=== PATIENT | male | born 1980 | race Two or more races ===

== ENCOUNTER 2021-05-19 17:58 | Emergency (ER) | payer MEDICAID, OTHER ==
[~2021-05-19] VITALS: Ht 167.6 cm; Wt 77.1 kg
[2021-05-19 18:00] VITALS: BP 118/78
--- NOTE | 2021-05-19 18:09 | NUR ---
BIBA ALS TO [facility]
[2021-05-19] MEDS ORDERED: NACL 0.9% 2,000 ML IV ONE (18:20)
[2021-05-19 18:38] LABS: BASOPHILS % (AUTO) 0.5 % (0.0-2.0); EOSINOPHILS # (AUTO) 0.4 K/uL (0-0.4); EOSINOPHILS % (AUTO) 4.6 % (0.0-4.0); HEMATOCRIT 40.1 % (36-52); HEMOGLOBIN 13.5 g/dL (12.0-18.0); LYMPHOCYTES % (AUTO) 23.9 % (20.5-51.1); MEAN CORPUSCULAR HEMOGLOBIN 30 pg (27-31); MEAN CORPUSCULAR HGB CONC 34 g/dL (33-37); MEAN CORPUSCULAR VOLUME 87.8 fL (80-94); MONOCYTES # (AUTO) 0.6 K/uL (0.8-1.0); MONOCYTES % (AUTO) 7.7 % (1.7-9.3); NEUTROPHILS # (AUTO) 5.3 K/uL (1.8-7.7); NEUTROPHILS % (AUTO) 63.3 % (42.2-75.2); PLATELET COUNT (AUTO) 338 K/uL (140-450); RED BLOOD CELL COUNT(AUTO) 4.57 MIL/uL (4.20-6.10); RED CELL DISTRIBUTION WIDTH 13.7 % (11.6-13.7); WHITE BLOOD COUNT (AUTO) 8.4 K/uL (4.8-10.8)
[2021-05-19 18:51] LABS: ACETONE, SERUM NEGATIVE (NEGATIVE)
[2021-05-19 19:05] LABS: ALBUMIN 3.1 g/dL (3.4-5.0); ANION GAP 12.4 (8-16); ASPARTATE AMINOTRANSFERASE 18 U/L (15-37); CARBON DIOXIDE 25.8 mmol/L (21-32); CHLORIDE 96 mmol/L (98-107); CREATININE 0.8 mg/dL (0.6-1.3); GFR ARICAN-AMERICAN 136 mL/min (>90); GLUCOSE 379 mg/dL (74-106); LIPASE 62 U/L (73-393); POTASSIUM 4.2 mmol/L (3.5-5.1); SODIUM SERUM 130 mmol/L (136-145); TOTAL BILIRUBIN 0.7 mg/dL (0.0-1.0); UREA NITROGEN, BLOOD 14 mg/dL (7-18)
--- NOTE | 2021-05-19 19:08 | NUR ---
Patient wheelchair assisted to bed 02.
[2021-05-19] MEDS ORDERED: ONDANSETRON 4 MG/2 ML VIAL IVP ONE (19:10)
--- NOTE | 2021-05-19 19:11 | NUR ---
MOVED TO ER BED 2
--- NOTE | 2021-05-19 19:12 | NUR ---
Patient BIB by [facility]. C/O Hign blood sugar x today. Per reported, patient had high blood sugar, dehydration, nausea and vomiting. BS 428 at the scence. Started IV 18 G LAC at the scence, no medication given.
[2021-05-19] MEDS ORDERED: NACL 0.9% 1,000 ML IV ONE (19:35)
--- NOTE | 2021-05-19 21:07 | NUR ---
Urine sample collected and sent to lab.
[2021-05-19 21:37] LABS: APPEARANCE,URINE CLEAR (CLEAR); BILIRUBIN,URINE NEGATIVE (NEGATIVE); BLOOD, URINE NEGATIVE (NEGATIVE); COLOR,URINE YELLOW (YELLOW); LEUKOCYTE ESTERASE ,URINE NEGATIVE (NEGATIVE); NITRITE, URINE NEGATIVE (NEGATIVE); UGLUCOSE 3+ (NEGATIVE)
[2021-05-19 21:43] LABS: ALBUMIN 2.5 g/dL (3.4-5.0); ANION GAP 8.4 (8-16); CARBON DIOXIDE 26.9 mmol/L (21-32); CREATININE 0.7 mg/dL (0.6-1.3); POTASSIUM 4.3 mmol/L (3.5-5.1); TOTAL BILIRUBIN 0.4 mg/dL (0.0-1.0)
[2021-05-19] MEDS ORDERED: INSULIN REGULAR, HUMAN 100 UNIT/ML VIAL SUBQ ONE (21:45)
[2021-05-19] MEDS ORDERED: HUM SUBQ ×2 (21:51)
[2021-05-19 22:57] VITALS: BP 141/78
--- NOTE | 2021-05-19 22:57 | NUR ---
Patient discharged with v/s stable. Written and verbal after care instructions given and explained. Patient alert, oriented and verbalized understanding of instructions. Ambulatory with steady gait. All questions addressed prior to discharge. ID band removed. Patient advised to follow up with PMD. Rx of Humalog (Insulin Lispo) given. Patient educated on indication of medication including possible reaction and side effects. Opportunity to ask questions provided and answered.
== END 2021-05-19 22:57 | disposition home or self-care (01) ==
LOC: MED 17:58
DX: E11.65 Type 2 diabetes mellitus with hyperglycemia (principal); E87.1 Hypo-osmolality and hyponatremia; E87.8 Other disorders of electrolyte and fluid balance, not elsewhere classified; Z79.4 Long term (current) use of insulin; Z59.00 Homelessness unspecified
CPT/HCPCS: 36415; 71045; 80053; 81003; 82009; 82803; 83690; 84484; 85025; 87086; 96361; 96372; 96374; 99285; J1815; J2405; J7030